=== PATIENT | female | born 1975 | race Caucasian/White ===

== ENCOUNTER 2016-12-15 16:31 | Inpatient (IN) | payer MEDICAID, OTHER ==
[~2016-12-15] VITALS: Ht 165.1 cm; Wt 53.5 kg
--- NOTE | 2016-12-15 16:30 | NUR ---
Intake Assessment; Patient is a 41 year old female, AOX4, presented to [facility] to detoxify from ETOH. Patient arrived at intake office at approximately 1600. She is the primary source of information. Urine provided by patient for urine drug screen. Patient appears to be moderately intoxicated. Patient appears to be anxious and agitated but remained cooperative during nursing initial assessment. Patient denies any allergies. Patient's admitting vital signs are as follows; BP 121/98, HR 94, Respirations 18, SPO2 95%, states pain on chin area rated 3/10, patient height is 5'5 weighing 118 lbs. Educated patient regarding unit protocols and policies, patient verbalized understanding. Will continue with further assessment when patient is up on the unit.
[2016-12-15 17:00] VITALS: BP 121/98
[2016-12-15] MEDS ORDERED: GABA-534 PO (17:14)
[2016-12-15] MEDS ORDERED: NORE7TAB PO (17:15)
[2016-12-15] MEDS ORDERED: NORE-134 PO (17:16)
[2016-12-15 17:27] LABS: *URINE HCG, QUAL NEGATIVE (NEGATIVE)
[2016-12-15 17:29] LABS: *AMPHETAMINE, URINE NEGATIVE (NEGATIVE); *BARBITURATE, URINE NEGATIVE (NEGATIVE); *CANNABINOID, URINE NEGATIVE (NEGATIVE); *COCCAINE, URINE NEGATIVE (NEGATIVE); *OPIATE, URINE NEGATIVE (NEGATIVE); *PHENCYCLIDINE SCREEN,URINE NEGATIVE (NEGATIVE)
--- NOTE | 2016-12-15 18:37 | NUR ---
Admission note; Patient is a 41 year old female, AOX4, presented to [facility] to detoxify from ETOH. Patient arrived at intake office at approximately 1600. She is the primary source of information. Patient is admitted under the care of Dr. Rodriguez to room 321. Urine provided by patient for urine drug screen. Thorough body and belonging check done by SENIOR DESIGNER. Patient appears to be moderately intoxicated. Patient appears to be anxious and agitated but remained cooperative during nursing initial assessment. Patient denies any allergies. Patient's admitting vital signs are as follows; BP 121/98, HR 94, Respirations 18, SPO2 95%, states pain on chin area rated 3/10, patient's height is 5'5 weighing 118 lbs. Discussed substance use history. Patient reported that she started drinking ETOH in 2006, patient struggled in multiple attempts on maintaining sobriety. Longest sobriety was 4 and a half years and recently relapsed in September. Since then patient has been drinking 2-3 bottles of wine a day, last consumed today 2 hours prior to admission. Discussed medical and psych history. Patient reported history of seizures related to ETOH withdrawals, last episode was October 2016. Patient also reported being diagnosed with Adult ADHD by her psychiatrist Isaias Sanabria. Patient reported taking Adderall, but patient stopped taking medication 3 weeks ago. Patient had Fibroid tumor removal history. Patient does not have PCP at this time. Skin check done, bruise and old scab noted on patient's skin. Family history discussed. Patient's sisters have history of Alcohol abuse. Patient's current CIWA is 5 manifested by increase anxiety and agitation. Detailed report given to MD. Patient was oriented to unit by SENIOR DESIGNER. Patient was placed on fall and seizure precaution. Bed in lowest position, call light within reach. Will closely monitor patient.
--- NOTE | 2016-12-15 19:30 | NUR ---
START OF SHIFT Pt is a 41 y/o female admitted today for ETOH dependence. Pt was dependent on 2-3 bottles of wine daily for the past 3 months. Last reported use was 2 bottles of wine approx 2 hours prior to admission. Pt is full code, NKA, regular diet, and on fall/seizure precautions. Pt reports hx of seizures r/t withdrawal, last in October and reports she attempted to withdrawal with no medical assistance. Pt reports PMH of ADHD and fibroid tumor removal. Pt has bruise and scrape on chin that was present prior to admission. Pt will start on a 5 day Ativan taper tomorrow morning. Upon assessment pt laying in bed and presents with nausea, tremors, increased HR, anxiety, irritability, sweats, sensitivity to light and restlessness. Pt complains of headache 4/10. Respirations 16, even and unlabored. Denies V/D. Denies chest pain or SOB. Medications due. Safety measures in place. Call light within reach. Will continue to monitor.
--- NOTE | 2016-12-15 19:32 | NUR ---
End of shift note; Patient is currently resting at this time, with eyes closed, respirations even and unlabored. Patient is on fall and seizure precaution. Bed in lowest position, call light within reach. Endorsed to night nurse.
--- NOTE | 2016-12-15 19:45 | NUR ---
PT REFUSED PICTURE OF CHIN WOUND Pt has a bruise and scrape on lower aspect of chin, pt reports it occurred "earlier in the week," prior to admission. Encouraged pt to allow us to photograph the area, but pt refused.
[2016-12-15 20:00] VITALS: BP 128/79
--- NOTE | 2016-12-15 20:57 | NUR ---
PRN ZOFRAN, ATIVAN 1 MG, BENADRYL, AND MOTRIN ADMINISTERED Pt reports having nausea. No vomiting. CIWA 11, Ativan 1 mg PRN administered per orders to admin if CIWA 5-15. Pt requests sleep aid and complains of headache 06/18. Safety measures in place. Call light within reach. Will continue to monitor.
--- NOTE | 2016-12-15 21:57 | NUR ---
ZOFRAN, ATIVAN, BENADRYL, AND MOTRIN REASSESSMENT Pt is laying in bed with eyes closed. CIWA reassessment for Ativan administration deferred, to be assessed when pt is awake per orders. Respirations 16, even and unlabored. Safety measures in place. Call light within reach. Will continue to monitor.
[2016-12-16] VITALS (7 sets, daily range): BP systolic 106–144; BP diastolic 70–105
--- NOTE | 2016-12-16 | NUR ---
CIWA DEFERRED Pt is laying in bed with eyes closed, CIWA deferred, to be assessed when pt is awake per orders. Respirations 16, even and unlabored. Safety measures in place. Call light within reach. Will continue to monitor.
--- NOTE | 2016-12-16 02:18 | NUR ---
PRN ATIVAN 1 MG AND ZOFRAN ADMINISTERED Pt reports having nausea. No vomiting. Pt appears moderately anxious, agitated and restless. Tremors present. CIWA 11. Safety measures in place. Call light within reach. Will continue to monitor.
--- NOTE | 2016-12-16 03:15 | NUR ---
PRN CLONIDINE AND MOTRIN ADMINISTERED Pt reports pain 7/10-generalized body discomfort, headache, and chin. Pt also has persistent anxiety and agitation. BP 144/105. PRN Clonidine administered for S/S of withdrawal and to reduce BP. CIWA 8.
--- NOTE | 2016-12-16 03:18 | NUR ---
PRN ATIVAN AND ZOFRAN REASSESSMENT Pt reports nausea has ceased and reports some improvement in anxiety and irritability. CIWA lowered from 11 to 8. Safety measures in place. Call light within reach. Will continue to monitor.
--- NOTE | 2016-12-16 04:15 | NUR ---
PRN CLONIDINE AND MOTRIN REASSESSMENT Pt still has anxiety, agitation, tremors. BP lowered to 132/87. Pt reports pain 0/10 now. Respirations 18, even and unlabored. Safety measures in place. Call light within reach. Will continue to monitor.
--- NOTE | 2016-12-16 04:35 | NUR ---
PRN ATIVAN 2 MG ADMINISTRATION CIWA 16, pt shows increased anxiety and agitation. Pt also has visible sweat, tremors, and restlessness. Safety measures in place. Call light within reach. Will continue to monitor.
--- NOTE | 2016-12-16 05:35 | NUR ---
PRN ATIVAN 2 MG REASSESSMENT CIWA lowered to 6. Pt has moderate improvement in anxiety, agitation, and tremors. Pt is laying in bed reading and watching tv. Respirations 16, even and unlabored. Safety measures in place. Call light within reach. Will continue to monitor.
[2016-12-16 07:43] LABS: BASOPHILS % (AUTO) 1.5 % (0.0-2.0); EOSINOPHILS # (AUTO) 0.1 K/uL (0.0-0.7); HEMATOCRIT 38.6 % (37-47); HEMOGLOBIN 13.1 G/DL (12.0-16.0); LYMPHOCYTES # (AUTO) 0.9 K/UL (0.8-4.8); LYMPHOCYTES % (AUTO) 31.4 % (20.5-51.5); MEAN CORPUSCULAR HEMOGLOBIN 33.1 UUG (27.0-31.0); MEAN CORPUSCULAR HGB CONC 34 g/dL (32.0-37.0); MEAN CORPUSCULAR VOLUME 97.8 FL (81.0-99.0); MONOCYTES # (AUTO) 0.4 K/UL (0.1-1.30); MONOCYTES % (AUTO) 13.5 % (0.0-11.0); NEUTROPHILS # (AUTO) 1.4 K/UL (1.8-8.9); NEUTROPHILS % (AUTO) 51.6 % (38.5-71.5); PLATELET COUNT (AUTO) 123 K/UL (150-450); RED BLOOD CELL COUNT(AUTO) 3.95 MIL/UL (4.2-5.4); WHITE BLOOD COUNT (AUTO) 2.8 K/UL (4.0-11.2)
--- NOTE | 2016-12-16 08:00 | NUR ---
START OF SHIFT NOTE 41 year old admitted last night for ETOH substance detox. On fall and seizure precautions. History of seizure last October related to ETOH withdrawal. CIWA 16, then 11 and then 6 during the night. Received PRN Ativan 1 mg x 2, and PRN Ativan 2 mg x 1. Also received PRN Clonidine, Zofran x 2, Motrin and Benadryl. Has scrape on chin, refused photograph, occassional sanguinous drainage. Given petroleum jelly for wound and dressing but refused dressing. Pt requesting Neosporin ointment. RN will notify MD. On 0800 patient rounds, Pt sleeping, respirations regular and unlabored. Bed in low position and locked, side rails up x 2 and padded, call jeronimo within reach. Will continue to monitor.
[2016-12-16 09:17] LABS: BILIRUBIN,TOTAL 0.3 mg/dL (0.2-1.0); CREATININE 0.7 mg/dL (0.6-1.3); MAGNESIUM 1.8 mg/dL (1.8-2.4); POTASSIUM 4.2 mmol/L (3.5-5.1); TOTAL PROTEIN, SERUM 7.3 g/dL (6.4-8.2)
--- NOTE | 2016-12-16 09:59 | NUR ---
VISUAL HALLUCINATIONS Pt reporting frequent visual hallucinations of someone in the room who is not there. CIWA 13, received scheduled Ativan 2 mg for Ativan taper. Hallucinations reported to Dr. Shipman, psychiatrist, who was in the room with the patient. ordered Zyprexa for hallucinations and stated hallucinations probably mostly due to withdrawal. Zyprexa given to Pt.
--- NOTE | 2016-12-16 12:14 | NUR ---
PRN MEDICATION ADMINISTRATION Pt reports generalized pain 10/18. Given Motrin PRN. Will reassess.
--- NOTE | 2016-12-16 12:14 | NUR ---
CIWA 16 CIWA 16. Given scheduled Ativan 2 mg Ativan. Reports visual and auditory hallucinations. Dr. Rodriguez notified of CIWA score and visual and auditory hallucinations. requests CIWA reassessment in 45 min. after Ativan dose and then follow Ativan PRN parameters if needed.
--- NOTE | 2016-12-16 13:00 | NUR ---
CIWA 10 1300 CIWA 10. Given 1 mg ativan PRN. Will reassess.
[2016-12-16 13:07] LABS: BAND % (MANUAL) 3 % (0-10); EOSINOPHILS % (MANUAL) 3 % (0-8); LYMPHOCYTES % (MANUAL) 39 % (20-40); MONOCYTES % (MANUAL) 11 % (2-10); NEUTROPHILS % (MANUAL) 44 % (42-75)
--- NOTE | 2016-12-16 13:14 | NUR ---
PRN MEDICATION REASSESSMENT Pt reports decrease in pain post Motrin administration, unable to quantify with number.
--- NOTE | 2016-12-16 13:19 | NUR ---
PRN MEDICATION ADMINISTRATION Pt reports anxiety 10/18. Given Vistaril PRN. Will reassess.
--- NOTE | 2016-12-16 13:22 | NUR ---
PRN MEDICATION ADMINISTRATION Pt reports anxiety 10/18. Given Angelataril PRN. Will reassess. Addendum: 12/16/16 at 1328 by GEENA LAY RN Duplicate
--- NOTE | 2016-12-16 14:12 | NUR ---
PRN MEDICATION REASSESSMENT Anxiety 0/10 after vistaril PRN medication.
--- NOTE | 2016-12-16 19:00 | NUR ---
END OF SHIFT NOTE 41 year old admitted last night for ETOH substance detox. On fall and seizure precautions. History of seizure last October related to ETOH withdrawal. Has abrasion on chin, photograph done, no drainage. Last CIWA 3 at 1809, patient only alert to loud verbal or tactile, difficult to keep eyes open for more than a moment and then falls back asleep. 1700 scheduled dose of ativan held. Dr. Rodriguez notified. Report given to night RN. Bed in low position and locked, side rails up x 2 and padded, call jeronimo within reach.
--- NOTE | 2016-12-16 20:00 | NUR ---
Start of Shift Note Received 41 year old, female. Admitted 12/15/2016 for ETOH substance detox. NKA. On full code. On regular diet. On fall and seizure precautions. History of seizure last October related to ETOH withdrawal. During the rounds at 2000H,No complaints received. CIWA 7. Has abrasion on chin. Bed in low position and locked, side rails up x 2 and padded, call jeronimo within reach. We'll continue to monitor.
[2016-12-17] VITALS (8 sets, daily range): BP systolic 124–155; BP diastolic 88–99
--- NOTE | 2016-12-17 00:38 | NUR ---
PRN Benadryl and Motrin Px complained about generalized pain and asked for pill to help her sleep. Benadryl 50 mg/cap, 1 cap and Motrin 400mg/tab, 1 tab given PO as PRN meds. We'll continue to monitor.
--- NOTE | 2016-12-17 01:40 | NUR ---
Pain reassessment Px verbalized pain improved but still, can't sleep. We'll continue to monitor.
--- NOTE | 2016-12-17 02:30 | NUR ---
PRN Catapres and Trazodone Px complained of being wide awake, requested for medication to help her sleep. Catapres 0.1mg/tab, 1 tab and Trazadone 50mg/tab, 1 tab given PO as PRN meds. BP= 124/93, MO= 87. We'll continue to monitor.
--- NOTE | 2016-12-17 03:30 | NUR ---
Catapres and Trazodone reassessment Px is still awake. BP= 118/ 83, GA= 74. We'll continue to monitor.
--- NOTE | 2016-12-17 04:11 | NUR ---
PRN Bentyl, Zofran and Tylenol Px verbalized that she vomited 2x with abdominal spasm present. Tylenol 325 mg/tab, 2 tabs; Bentyl 20mg/tab, 1 tab given PO and Zofran 4 mg/tab, 1 tab given SL as PRN meds. We'll continue to monitor.
--- NOTE | 2016-12-17 05:11 | NUR ---
Emesis reassessment Px verbalized that N/V and abdominal spasms improved. We'll continue to monitor.
--- NOTE | 2016-12-17 07:09 | NUR ---
End of Shift Notes Received 41 year old, female. Admitted 12/15/2016 for ETOH substance detox. NKA. On full code. On regular diet. On fall and seizure precautions. History of seizure last October related to ETOH withdrawal. Has abrasion on chin. During the shift, at 0030, Px complained about generalized pain and asked for pill to help her sleep. Benadryl 50 mg/cap, 1 cap and Motrin 400mg/tab, 1 tab given PO as PRN meds. At 0230 , Px complained of being wide awake. Catapres 0.1mg/tab, 1 tab and Trazadone 50mg/tab, 1 tab given PO as PRN meds. BP= 124/93, [place]= 87. At 0411, Px verbalized that she vomited 2x with abdominal spasm present. Tylenol 325 mg/tab, 2 tabs; Bentyl 20mg/tab, 1 tab given PO and Zofran 4 mg/tab, 1 tab given SL as PRN meds. Oral intake of 1 L, voided 1x, no BM. Slept for 8.5 hrs. Bed in low position and locked, side rails up x 2 and padded, call jeronimo within reach. We'll continue to monitor. Addendum: 12/17/16 at 0714 by DELILAH SOARES RN Px oral intake of 2L, voided 2x, no BM and slept for 2.5 hrs.
--- NOTE | 2016-12-17 07:30 | NUR ---
START OF SHIFT Pt is a 41 yr old female, AA&Ox3. Pt was admitted on 12/15/16 for ETOH Dependence and is on 5 day Ativan taper as ordered. Medication catarina well. Received report from rn night nurse. Pt slept for 3 hr during the night. Last CIWA score was 7 at 0400. Pt is observed with increase anxiety with agitation m/b difficulty staying still. Skin is warm and dry to touch. Flat affect is observed. Fine tremors are seen. Pt denies any n/v. Encouraged increase fluid intake. Safety precautions observed. Bed kept in low position and locked with side rails up x2. Call light is within reach. Will continue to monitor.
[2016-12-17 10:09] LABS: HEPATITIS B SURFACE AG Negative (Negative)
--- NOTE | 2016-12-17 12:18 | NUR ---
PRN GIVEN Pt c/o generalized body aches 08/18. Facial grimacing is observed. Motrin 400mg PO PRN was given as ordered. Medication catarina well. Encouraged increase fluid intake.
--- NOTE | 2016-12-17 13:18 | NUR ---
PRN RE-ASSESSMENT Motrin PRN was effective. Pt denies any pain or discomfort at this time. Encouraged increase fluid intake. Will continue to monitor.
--- NOTE | 2016-12-17 16:17 | NUR ---
PRN VISTARIL/MOTRIN Pt c/o of anxiety, agitation, restless, general body aches 5/10. Pt provided with non pharmacological intervention with no relief, provided with calming reassurance, with no relief. Administered PRN Motrin 400mg 1 tab Po, Vistaril 25mg 1 cap Po as ordered. Will endorsed to primary nurse to reassess.
--- NOTE | 2016-12-17 17:17 | NUR ---
PRN RE-ASSESSMENT Vistaril PRN and Motrin PRN was effective. Pt continues to c/o mild anxiety but is able to cope with anxiety level. Pt denies any pain at this time. Encouraged increase fluid intake. Will continue to monitor.
--- NOTE | 2016-12-17 19:07 | NUR ---
END OF SHIFT Pt is a 41 yr old female, AA&Ox3. Pt was admitted on 12/15/16 for ETOH Dependence and is on 5 day Ativan taper as ordered. Medication catarina well. Pt has been cooperative with medication regimen and plan of care. Pt attended group sessions as offered during the day. Motrin PRN was given at 1218 for generalized body aches. Medication was effective. Last CIWA score was 9 at 1600. Pt is observed with increase anxiety m/b difficulty staying still. Skin is warm and dry to touch. Pt has a minor abrasion on chin presented upon admission. Site kept clean and dry. Fine tremors are seen. Pt denies any n/v at this time. Encouraged increase fluid intake for hydration. Safety precautions observed. Bed kept in low position and locked with side rails up x2. Call light is within reach.
--- NOTE | 2016-12-17 19:55 | NUR ---
START OF SHIFT Received report from day shift nurse. Pt attended a group meeting and returned to her room after. She is a 41 yo female admitted to [facility] on 12/15 for ETOH withdrawal. She is A&O x4 and ambulatory. NKA, full code status, and on a regular diet. She has a H seizures, ADHD, fibroid tumor removal. On admission she reported drinking ETOH wine 2-3 bottles per day. Pt started a 5 day Ativan taper on 12/16. She is observed with moderate tremors, facial flushing, and reports moderate anxiety. Taper due tonight. Fall and seizure precautions in place. Bed is down with call light in reach.
--- NOTE | 2016-12-17 21:09 | NUR ---
PRN Hydrogen peroxide, Neosporin, and Trazodone Pt has a small abrasion with bruising on the chin. No s/s of infection. PRN hydrogen peroxide and Neosporin administered per orders. Pt reports feeling anxious and unable to sleep. PRN Trazodone administered with routine medications.
--- NOTE | 2016-12-17 22:08 | NUR ---
PRN Trazodone reassessment PRN Trazodone not yet effective. Pt reports continued anxiety and inability to sleep.
--- NOTE | 2016-12-17 22:09 | NUR ---
PRN Vistaril Pt reports continued anxiety and is observed with tremors. B/P 140/92 and HR 107. CIWA 6. PRN Vistaril administered.
--- NOTE | 2016-12-17 23:02 | NUR ---
PRN Vistaril reassessment Pt reports only mild relief of anxiety. She continues to be restless and unable to sleep. Encouraged relaxation.
--- NOTE | 2016-12-17 23:03 | NUR ---
PRN Motrin and Benadryl Pt reports continued anxiety, inability to sleep, and chin pain r/t abrasion with bruising. PRN Motrin and Benadryl administered.
[2016-12-18] VITALS: BP 136/97
--- NOTE | 2016-12-18 00:03 | NUR ---
PRN Motrin and Benadryl reassessment PRN Motrin effective. Pt reports chin pain is relieved. PRN Benadryl not yet effective. Pt has not been able to fall sleep.
--- NOTE | 2016-12-18 00:22 | NUR ---
PRN Clonidine Pt reports continued anxiety, restlessness, and inability to sleep. She is observed with tremors. B/P 136/97 and HR 98. CIWA 5. PRN Clonidine administered.
--- NOTE | 2016-12-18 01:22 | NUR ---
PRN Clonidine reassessment PRN Clonidine effective. Pt is lying in bed resting with eyes closed. Respirations even and unlabored. Safety measures in place.
[2016-12-18 03:15] VITALS: BP 142/97
--- NOTE | 2016-12-18 03:18 | NUR ---
PRN Toradol Pt reports generalized body aches 8/10 from "my neck to my legs". Pt is restless in bed, reports anxiety, and inability to sleep r/t pain. PRN Toradol administered.
--- NOTE | 2016-12-18 03:48 | NUR ---
PRN Clonidine effective Pt is lying in bed resting with eyes closed. Respirations even and unlabored. Safety measures in place.
[2016-12-18 04:00] VITALS: BP 142/97
--- NOTE | 2016-12-18 05:30 | NUR ---
Nursing note Pt woke up tearful, anxious, and requesting to make a phone call. After talking with patient she was able to calm down. Pt stated would try to go back to sleep and make a phone call later in the morning.
[2016-12-18 06:20] VITALS: BP 181/114
--- NOTE | 2016-12-18 06:20 | NUR ---
RN note Patient noted with panic attacks, increased anxiety and elevated CT=609/115, Kdsku=476, CIWA=16. Notified Dr. Tamayo and ordered one-time order of Ativan 2 mg PO and Hydralazine 50 mg PO. To be carried out.
--- NOTE | 2016-12-18 07:18 | NUR ---
END OF SHIFT Report provided to day shift nurse. Pt is awake in her room. She is a 41 yo female admitted to [facility] on 12/15 for ETOH withdrawal. She is A&O x4 and ambulatory. NKA, full code status, and on a regular diet. She has a PMH seizures, ADHD, fibroid tumor removal. On admission she reported drinking ETOH wine 2-3 bottles per day. Pt started a 5 day Ativan taper on 12/16. Pt has anxiety and tremors.PRN Clonidine, Benadryl, Trazodone, Motrin, Toradol, hydrogen peroxide, and neosporin administered. Pt was expressing excessive worry and panic with full body tremors in the morning. Last CIWA 16. One time orders received for Ativan and Hydralazine. Pt relaxed slightly. Endorsed to day shift for reassessment. She drank 4315 and slept for 3 hours. Fall and seizure precautions in place. Bed is down with call light in reach.
--- NOTE | 2016-12-18 07:48 | NUR ---
BEGINNING OF SHIFT Patient endorsement report received from parts counter clerk nurse, all pertinent information discussed. Patient is a 41 year old female with admitting Dx: etoh dependence. Patient continues on a 5 day Ativan taper as ordered and is scheduled ot begin day 3 of taper, well tolerated, no ASE noted. Per parts counter clerk patient received PRN: Clonidine, Motrin, Benadryl, Toradol and one time orders of hydralazine, and Ativan. Per parts counter clerk patient with multiple episodes of anxiety requires frequent calming reassurance. Per parts counter clerk patient slept for 3 hours. Last CIWA score of: 16. Patient received awake, alert and oriented x4, noted with increase in anxiety and restlessness patient verbalizing she is worried about laceration to face, provided patient with non pharmacological interventions and calming reassurance with some relief. Educated patient regarding plan of care for the day and medication regimen with good verbal understanding. will continue to monitor closely. Safety measures in place. call light kept with in reach, will continue to monitor closely.
[2016-12-18 08:17] VITALS: BP 134/89
[2016-12-18 08:39] VITALS: BP 134/89
[2016-12-18 08:58] LABS: BASOPHILS # (AUTO) 0.1 K/uL (0.0-8.0); BASOPHILS % (AUTO) 1.4 % (0.0-2.0); EOSINOPHILS # (AUTO) 0.2 K/uL (0.0-0.7); EOSINOPHILS % (AUTO) 4.2 % (0.0-7.0); HEMATOCRIT 37.5 % (31.2-41.9); HEMOGLOBIN 13.1 g/dL (10.9-14.3); LYMPHOCYTES # (AUTO) 0.8 K/uL (20.0-40.0); LYMPHOCYTES % (AUTO) 21.7 % (20.5-51.5); MEAN CORPUSCULAR HEMOGLOBIN 34.6 uug (24.7-32.8); MEAN CORPUSCULAR HGB CONC 35 g/dL (32.3-35.6); MEAN CORPUSCULAR VOLUME 99.4 fL (75.5-95.3); MONOCYTES # (AUTO) 0.7 K/uL (2.0-10.0); MONOCYTES % (AUTO) 17.1 % (0.0-11.0); NEUTROPHILS # (AUTO) 2.1 K/uL (1.8-8.9); NEUTROPHILS % (AUTO) 55.6 % (38.5-71.5); PLATELET COUNT (AUTO) 129 K/uL (179-408); RED BLOOD CELL COUNT(AUTO) 3.77 MIL/uL (3.63-4.92); WHITE BLOOD COUNT (AUTO) 3.9 K/uL (3.8-11.8)
--- NOTE | 2016-12-18 09:44 | NUR ---
PRN TORADOL Patient c/o severe pain to jaw and back area 10/18 patient provided with non pharmacological interventions with no relief, administered Toradol injection as ordered, well tolerated, will monitor effectiveness of medication.
--- NOTE | 2016-12-18 09:49 | NUR ---
Therapist prompted client about group times. Client stated she will attend all groups today.
--- NOTE | 2016-12-18 10:44 | NUR ---
TORADOL REASSESSMENT Patient reports medication effective at reducing withdrawals. patient reports medication effective current pain leave 2/, tolerable as per patient, will continue to monitor.
[2016-12-18 11:10] LABS: BILIRUBIN,DIRECT 0.1 mg/dL (0.0-0.2); BILIRUBIN,TOTAL 0.4 mg/dL (0.2-1.0); CREATININE 0.8 mg/dL (0.6-1.3); MAGNESIUM 1.9 mg/dL (1.8-2.4); TOTAL PROTEIN, SERUM 7.9 g/dL (6.4-8.2)
--- NOTE | 2016-12-18 11:20 | NUR ---
AWOL Per worm farm laborer patient was noted walking down stairwell towards hospital lobby. Per DOO patient was encouraged to return to unit, per patient wants to leave and does not want to return back upstairs to [facility], per DOO risk vs benefits were explained with good verbal understanding. Patient walked out of the hospital without belonging and refusing to sign any AMA form, and refused to sign resource list, patient also refused to be seen by medical team. Charge Nurse, DON, house supervision, psychiatrist and MD were made aware of patient leaving AWOL. Patient left hospital premises at 1120.
[2016-12-18 12:04] LABS: EOSINOPHILS % (MANUAL) 2 % (0-8); LYMPHOCYTES % (MANUAL) 28 % (20-40); MONOCYTES % (MANUAL) 13 % (2-10); NEUTROPHILS % (MANUAL) 57 % (42-75)
--- NOTE | 2016-12-18 12:08 | NUR ---
At approximately 1114 hours I entered the stairwell to go to the 3rd floor of the [facility], specifically the [facility] Service line. I encountered the patient Essie Cherry and asked her where she was going and if I could help her with anything. She stated that she wanted to leave the hospital and she only agreed to be here on our unit for 5 days. I explained to her that she arrived on the unit on the 15 of December at approximately 1630 hours and she will not be medically cleared until the 22 of December due to her taper that she was put on for a safe detoxification to minimize possible complications from her withdrawal. She said that she has no interest in staying and will be leaving the hospital. I explained to her the risks of leaving early without finishing her taper and also without having the doctor medically clear her for discharge, she insisted that she would be leaving no matter what. I escorted her to the intake and [id number] office for the [facility] service line and asked Armani Feliciano to keep and eye on her while we prepared her AMA paperwork and retrieved her valuables and belongings. I explained to Essie that i would be right back with her belongings and paperwork. I received a call from Armani Feliciano at 1117 hours and he explained that Essie refused to stay to sign anything and refused to wait for her valuables and she left the facility approximately 1120 hours. She was counseled on the risks of leaving Against Medical Advice by myself and Armani Feliciano and decided to leave despite our warnings.
== END 2016-12-18 11:20 | disposition left against medical advice (07) | DRG 770 ==
LOC: SRC 16:31
PROVIDERS: ADMIT Internal Medicine; ATTEND Internal Medicine
PROC: HZ2ZZZZ Detoxification Services for Substance Abuse Treatment (ICD-10-PCS; principal; 2016-12-15)
PROC: HZ41ZZZ Group Counseling for Substance Abuse Treatment, Behavioral (ICD-10-PCS; 2016-12-17)
PROC: HZ31ZZZ Individual Counseling for Substance Abuse Treatment, Behavioral (ICD-10-PCS; 2016-12-18)
DX: F10.230 Alcohol dependence with withdrawal, uncomplicated (principal); D69.6 Thrombocytopenia, unspecified; I15.9 Secondary hypertension, unspecified; F10.288 Alcohol dependence with other alcohol-induced disorder; S01.81XA Laceration without foreign body of other part of head, initial encounter; D72.819 Decreased white blood cell count, unspecified; F90.9 Attention-deficit hyperactivity disorder, unspecified type; Y90.9 Presence of alcohol in blood, level not specified; Y09 Assault by unspecified means; Y92.89 Other specified places as the place of occurrence of the external cause; Z86.69 Personal history of other diseases of the nervous system and sense organs; K70.10 Alcoholic hepatitis without ascites
CPT/HCPCS: 36415; 70030-TC; 80307; 82746; 83690; 83735; 84703; 85025; 86580; 86592; 86705; 86803; 87340; 87806; A4663; A9150; G0480; J1885; Q0162; Q0163